=== PATIENT | female | born 1985 | race African-American/Black ===

== ENCOUNTER 2018-02-19 23:25 | Emergency (ER) | payer MEDICAID ==
[~2018-02-19] VITALS: Ht 175.3 cm; Wt 77.0 kg
[2018-02-20] MEDS ORDERED: SODIUM CHLORIDE 0.9% 1,000 ML IV ONE (01:51)
[2018-02-20] MEDS ORDERED: MORPHINE SULFATE 4 MG/ML CPJ (NOT FOR IM USE) IV STA (01:51)
[2018-02-20] MEDS ORDERED: ONDANSETRON HCL 4MG/2ML VIAL IV STA (01:51)
[2018-02-20 02:18] LABS: BASOPHILS % 1.1 % (0.0-2.0); EOSINOPHILS % 3.4 % (0.0-5.0); HEMATOCRIT. 38.1 % (36.0-48.0); HEMOGLOBIN. 12.9 g/dL (12.0-16.0); LYMPHOCYTES % 41.9 % (20.0-50.0); MEAN CORPUSCULAR HEMOGLOBIN 28.7 pg (28.0-32.0); MEAN CORPUSCULAR VOLUME 84.6 fL (81.0-99.0); MEAN PLATELET VOLUME 9.6 fl (7.4-10.4); MONOCYTES % 11.7 % (2.0-8.0); NEUTROPHILS % 41.9 % (40.0-76.0); PLATELET 176 x1000/uL (130-400); RED BLOOD CELL COUNT 4.51 mill/uL (4.2-5.4); RED CELL DISTRIBUTION WIDTH 14.1 % (11.6-14.6)
[2018-02-20 02:19] LABS: CLARITY URINE CLEAR (CLEAR); COLOR URINE YELLOW (YELLOW); KETONES URINE TRACE (NEGATIVE); LEUKOCYTE ESTERASE URINE NEGATIVE (NEGATIVE); NITRITE URINE NEGATIVE (NEGATIVE); OCCULT BLOOD URINE NEGATIVE (NEGATIVE); PH URINE 5.5 (4.5-8.0); PROTEIN URINE NEGATIVE (NEGATIVE); SPECIFIC GRAVITY URINE 1.024 (1.005-1.030); UROBILINOGEN URINE 0.2 E.U./dL (0.2-1.0)
[2018-02-20 02:21] LABS: CHLORIDE 107 mEq/L (98-107)
[2018-02-20] MEDS ORDERED: KETOROLAC 15MG/ML VIAL IV ONE (02:30)
[2018-02-20 07:50] VITALS: BP 105/62
== END 2018-02-20 08:43 | disposition home or self-care (01) ==
LOC: ER 23:25
DX: R10.11 Right upper quadrant pain (principal); N28.1 Cyst of kidney, acquired
CPT/HCPCS: 36415; 74176; 76705; 80053; 81003; 81025; 83690; 85025; 96361; 96374; 99285; J1885; J7030; J2270; J2405

== ENCOUNTER 2019-05-27 12:56 | Emergency (ER) | payer MEDICAID ==
[~2019-05-27] VITALS: Ht 172.7 cm; Wt 60.0 kg
[2019-05-27 14:25] LABS: CLARITY URINE CLEAR (CLEAR); COLOR URINE YELLOW (YELLOW); KETONES URINE NEGATIVE (NEGATIVE); LEUKOCYTE ESTERASE URINE NEGATIVE (NEGATIVE); NITRITE URINE NEGATIVE (NEGATIVE); OCCULT BLOOD URINE NEGATIVE (NEGATIVE); PROTEIN URINE NEGATIVE (NEGATIVE); SPECIFIC GRAVITY URINE 1.022 (1.005-1.030); UROBILINOGEN URINE 0.2 E.U./dL (0.2-1.0)
[2019-05-27 15:40] VITALS: BP 94/56
[2019-05-30 04:15] LABS: CHLAMYDIA TRACHOMATIS NAA Negative (Negative); NEISSERIA GONORRHOEAE NAA Negative (Negative)
== END 2019-05-27 15:46 | disposition home or self-care (01) ==
LOC: ER 13:55
DX: R30.0 Dysuria (principal); G35 Multiple sclerosis
CPT/HCPCS: 81003; 87210; 87491; 87591; 99283